=== PATIENT | female | born 1965 | race Asian ===

== ENCOUNTER 2025-01-27 23:17 | Emergency (ER) | payer MEDICAID ==
[~2025-01-27] VITALS: Ht 144.8 cm; Wt 66.9 kg
[2025-01-27 23:20] VITALS: TEMP 98.6
[2025-01-28] MEDS: ACETAMINOPHEN 325 MG TABLET PO ONE (00:46)
[2025-01-28 00:54] LABS: PLATELET COUNT (AUTO) 237 K/uL (150-450); RED BLOOD CELL COUNT(AUTO) 4.49 MIL/uL (4.00-5.20); RED CELL DISTRIBUTION WIDTH 14.4 % (11.5-14.5); WHITE BLOOD COUNT (AUTO) 4.9 K/uL (4.5-11.0)
[2025-01-28 01:03] LABS: CALCIUM, TOTAL 8.5 mg/dL (8.8-10.5); CREATININE 0.50 mg/dL (0.60-1.30); GLOMERULAR FILTR. RATE CALC > 60 mL/min (>60); GLUCOSE,RANDOM 149 mg/dL (70-110); SODIUM SERUM 138 mmol/L (136-145); UREA NITROGEN, BLOOD 13 mg/dL (7-18)
[2025-01-28] MEDS: LOSARTAN POTASSIUM 25 MG TABLET PO ONE (05:06)
[2025-01-28] MEDS ORDERED: LOSA-30 PO (06:03)
[2025-01-28 07:31] VITALS: BP 169/94; PULSE 74; RESP 17; O2SAT 98
== END 2025-01-28 07:54 | disposition home or self-care (01) ==
LOC: EMS 23:51
DX: G62.9 Polyneuropathy, unspecified (principal); I10 Essential (primary) hypertension; Z79.899 Other long term (current) drug therapy
CPT/HCPCS: 72100; 80048; 85025; 93971; 99284